=== PATIENT | female | born 1940 | race Caucasian/White ===

== ENCOUNTER 2020-07-11 10:20 | Emergency (ER) | payer OTHER ==
[~2020-07-11] VITALS: Ht 154.9 cm; Wt 62.6 kg
--- NOTE | 2020-07-11 10:26 | NUR ---
Patient ambulated to bed 5. RN evaluating the patient at bedside.
[2020-07-11 10:33] VITALS: BP 125/33
--- NOTE | 2020-07-11 10:39 | NUR ---
79 Y/O COMES TO ED AFTER BEING REFERR[facility]CP [facility] FOR HGB 6.5 AND HCT 23.4. PT DENIES N/V, DENIES FEVER/CHILLS. NO OTHER SYMPTOMS REPORTED. IN ED, VSS. GCS 15. HEART RATE NORMAL REGULAR RHYTHM. CLEAR BREATH SOUNDS. ABDOMEN SOFT, NON-TENDER. PT POSITIONED COMFORTABLY IN BED WITH 2 SIDERAILS UP. ERMD MADE AWARE OF PT STATUS. PMH: HTN, HLD NKA
--- NOTE | 2020-07-11 11:06 | NUR ---
DR ALEJO AT BEDSIDE EXAMINING PATIENT
[2020-07-11 11:27] LABS: ALBUMIN 3.6 g/dL (3.4-5.0); ANION GAP 12.5 (8-16); ASPARTATE AMINOTRANSFERASE 18 U/L (15-37); CHLORIDE 100 mmol/L (98-107); CREATININE 0.8 mg/dL (0.6-1.3); GLUCOSE 115 mg/dL (74-106); POTASSIUM 4.5 mmol/L (3.5-5.1); SODIUM SERUM 133 mmol/L (136-145); TOTAL BILIRUBIN 0.2 mg/dL (0.0-1.0); UREA NITROGEN, BLOOD 37 mg/dL (7-18)
[2020-07-11 11:28] LABS: BASOPHILS # (AUTO) 0.1 K/uL (0.00-0.22); BASOPHILS % (AUTO) 0.8 % (0.0-2.0); EOSINOPHILS # (AUTO) 0.2 K/uL (0-0.4); HEMATOCRIT 22.4 % (36-48); LYMPHOCYTES # (AUTO) 1.6 K/uL (2.5-16.5); LYMPHOCYTES % (AUTO) 17.5 % (20.5-51.1); MEAN CORPUSCULAR HEMOGLOBIN 21 pg (27-31); MEAN CORPUSCULAR HGB CONC 30 g/dL (33-37); MEAN CORPUSCULAR VOLUME 69.5 fL (80-94); MONOCYTES # (AUTO) 0.9 K/uL (0.8-1.0); MONOCYTES % (AUTO) 9.7 % (1.7-9.3); NEUTROPHILS # (AUTO) 6.4 K/uL (1.8-7.7); PLATELET COUNT (AUTO) 413 K/uL (140-450); RED BLOOD CELL COUNT(AUTO) 3.23 MIL/uL (4.20-5.40); RED CELL DISTRIBUTION WIDTH 21.1 % (11.6-13.7); WHITE BLOOD COUNT (AUTO) 9.2 K/uL (4.8-10.8)
[2020-07-11 11:30] LABS: HEMOGLOBIN 6.7 g/dL (12.0-16.0); PROTHROMBIN TIME 10.1 secs (10.8-13.4)
--- NOTE | 2020-07-11 11:59 | NUR ---
er medical technician at bedside.
--- NOTE | 2020-07-11 12:13 | NUR ---
FELIPE SWAB DONE. HANDED TO ILA GIRALDO.
[2020-07-11] MEDS ORDERED: LISI5TAB18 PO (12:34)
[2020-07-11] MEDS ORDERED: OMEP20EC11 PO (12:34)
[2020-07-11] MEDS ORDERED: ATOR10TA PO (12:34)
[2020-07-11] MEDS ORDERED: MELO15TA11 PO (12:34)
--- NOTE | 2020-07-11 15:30 | NUR ---
Consent signed per patient agreeing to administration of blood. Blood has been type and crossmatched. Blood sent from blood bank. Information on unit of blood checked against patient wristband at bedside by two nurses. All information matches. Patient or responsible democrat informed of potential complications associated with blood transfusion. Informed of possible transfusion reaction symptoms. Aware of need to notify nurse at once of itching, shortness of breath, flushing, feeling of impending doom, or other symptoms not previously present. Vital signs taken within 5 minutes prior to initiation of transfusion. RN will remain with patient for first 15 minutes of transfusion at which time vital signs will be re-assessed.
--- NOTE | 2020-07-11 17:18 | NUR ---
Vida machuca in [facility] - 07/11/20 at 1721 by [facility] [place] REPORT GIVEN TO FREDERICK PARIKH FROM [facility].
--- NOTE | 2020-07-11 17:20 | NUR ---
REPORT GIVEN TO FREDERICK PARIKH FROM [facility]. PT GOING TO ROOM 284-A. RECEIVING PHYSICIAN DR. PULIDO. CIRCUS ROUSTABOUT TIME 6PM.
--- NOTE | 2020-07-11 17:45 | NUR ---
BLOOD TRANSFUSION OF 300 ML RED BLOOD CELLS COMPLETED. PT TOLERATED TRANSFUSION WELL. VITAL SIGNS STABLE. NO SIGNS OF TRANSFUSION REACTION.
--- NOTE | 2020-07-11 18:00 | NUR ---
Consent signed agreeing to administration of blood. Blood has been type and crossmatched. Blood sent from blood bank. Information on unit of blood checked against patient wristband at bedside by two nurses. All information matches. Patient or responsible green party informed of potential complications associated with blood transfusion. Informed of possible transfusion reaction symptoms. Aware of need to notify nurse at once of itching, shortness of breath, flushing, feeling of impending doom, or other symptoms not previously present. Vital signs taken within 5 minutes prior to initiation of transfusion. RN will remain with patient for first 15 minutes of transfusion at which time vital signs will be re-assessed.
--- NOTE | 2020-07-11 19:10 | NUR ---
RECEIVED REPORT FROM FREDERICK KEARNS FOR CONTINUITY OF CARE
--- NOTE | 2020-07-11 19:20 | NUR ---
CALLED SON REGARDING PATIENT GETTING TRANSFERRED
--- NOTE | 2020-07-11 19:22 | NUR ---
Vida machuca in [facility] - 07/11/20 at 1922 by [facility] REPORT GIVEN TO FREDERICK MAYA. ALL CARES TRANSFERRED AT THIS TIME.
--- NOTE | 2020-07-11 19:23 | NUR ---
REPORT GIVEN TO FREDERICK MAYA. ALL CARES TRANSFERRED AT THIS TIME.
--- NOTE | 2020-07-11 19:56 | NUR ---
[facility] AT BEDSIDE FOR TRANSPORT.
--- NOTE | 2020-07-11 20:14 | NUR ---
Patient to be transferred to [facility]. Is being transferred due to INSURANCE REQUEST AND CONTINUITY OF CARE. Receiving facility has accepting physician and available space. ER physician has signed transfer form. Patient or responsible constitution party has agreed to transfer and signed form. Patient belongings inventoried and will be sent with patient. Copy of nursing notes, lab reports, EKG, Physicians Orders and X-rays to be sent with patient. Report called to FREDERICK PARIKH at receiving facility. [facility] ambulance service has been called for transfer. ETA is 30 MINS.
[2020-07-11 20:16] VITALS: BP 142/71
== END 2020-07-11 20:14 | disposition short-term general hospital (02) ==
LOC: MED 10:20
DX: D64.9 Anemia, unspecified (principal); Z20.822 Contact with and (suspected) exposure to COVID-19; E78.5 Hyperlipidemia, unspecified; Z90.49 Acquired absence of other specified parts of digestive tract; Z98.890 Other specified postprocedural states
CPT/HCPCS: 36415; 71045; 80053; 83880; 84484; 85025; 85610; 85730; 86886; 86900; 86901; 86920; 87426; 93005; 99285; J7030; P9016